=== PATIENT | female | born 1990 | race Caucasian/White ===

== ENCOUNTER 2017-02-16 19:11 | Emergency (ER) | payer OTHER ==
[~2017-02-16] VITALS: Ht 165.1 cm; Wt 56.7 kg
[2017-02-16 19:13] VITALS: BP 129/91
[2017-02-16] MEDS ORDERED: TRINTAB PO (19:34)
[2017-02-16] MEDS ORDERED: ACETAMINOPHEN TAB 650MG DOSE (2X325MG) PO ONE (20:00)
== END 2017-02-16 20:26 | disposition home or self-care (01) ==
LOC: M ED 20:21
DX: S86.812A Strain of other muscle(s) and tendon(s) at lower leg level, left leg, initial encounter (principal); X50.9XXA Other and unspecified overexertion or strenuous movements or postures, initial encounter; Y92.9 Unspecified place or not applicable; Y93.72 Activity, wrestling; Y99.9 Unspecified external cause status; Z79.01 Long term (current) use of anticoagulants

== ENCOUNTER 2017-08-22 11:05 | Emergency (ER) | payer OTHER ==
[~2017-08-22] VITALS: Ht 165.1 cm; Wt 61.4 kg
[~2017-08-22 11:05] MED LIST: TRINTAB3 PO
[2017-08-22] MEDS ORDERED: IBUP-1022 PO (11:14)
[2017-08-22] MEDS ORDERED: IBUPROFEN 800 MG TAB PO ONE (12:15)
[2017-08-22 12:28] LABS: BASO # 0.1 10^3/uL (0.0-0.2); BASO % 0.8 % (0.0-1.0); EOS # 0.1 10^3/uL (0.0-0.50); EOS % 1.8 % (0.0-3.0); IMMATURE GRANULOCYTE % 0.4 % (0-0); LYMPH # 2.2 10^3/uL (1.5-6.5); LYMPH % 30.8 % (24.0-44.0); MEAN CORPUSCULAR HGB CONC 33.9 g/dl (32.0-36.5); MEAN CORPUSCULAR VOLUME 91.5 fl (80.0-96.0); MONO # 0.5 10^3/uL (0.0-0.8); MONO % 7.5 % (0.0-5.0); NEUTROPHILS # 4.2 10^3/uL (1.8-7.7); NEUTROPHILS % 58.7 % (36.0-66.0); PLATELET COUNT, AUTOMATED 265 10^3/uL (150-450); RED CELL DISTRIBUTION WIDTH 12.2 % (11.5-14.5); WHITE BLOOD COUNT 7.2 10^3/uL (4.0-10.0)
[2017-08-22 13:33] VITALS: BP 109/65
== END 2017-08-22 13:34 | disposition home or self-care (01) ==
LOC: M ED 11:05
DX: N92.0 Excessive and frequent menstruation with regular cycle (principal); F17.210 Nicotine dependence, cigarettes, uncomplicated; Z79.3 Long term (current) use of hormonal contraceptives

== ENCOUNTER → 2020-11-02 | Outpatient (REF) | payer OTHER ==
[~2020-11-02] MED LIST changes: +IBUP-1022 PO; +TRINTAB PO; -TRINTAB3 PO
[2020-11-02 19:43] LABS: HEMATOCRIT 37.4 % (36.0-47.0); HEMOGLOBIN 12.1 g/dl (12.0-15.5); MEAN CORPUSCULAR HEMOGLOBIN 29.7 pg (27.0-33.0); MEAN CORPUSCULAR HGB CONC 32.4 g/dl (32.0-36.5); MEAN CORPUSCULAR VOLUME 91.7 fl (80.0-96.0); PLATELET COUNT, AUTOMATED 245 10^3/uL (150-450); RED BLOOD COUNT 4.08 10^6/uL (4.00-5.40); WHITE BLOOD COUNT 6.7 10^3/uL (4.0-10.0)
[2020-11-02 21:03] LABS: HEPATITIS C VIRUS ABY INDEX < 0.0 INDEX (<0.8); HIV 1&2 SCREEN CENTAUR NEGATIVE (NEGATIVE)
== END ==
LOC: M PLALAB 15:35
PROVIDERS: ATTEND Advanced Practice Midwife
DX: Z34.91 Encounter for supervision of normal pregnancy, unspecified, first trimester (principal); Z3A.00 Weeks of gestation of pregnancy not specified

== ENCOUNTER → 2020-11-29 | Outpatient (CLI) | payer OTHER | LOC: M WHC 17:27 | PROVIDERS: ATTEND Obstetrics & Gynecology | DX: Z34.92 Encounter for supervision of normal pregnancy, unspecified, second trimester (principal); Z3A.14 14 weeks gestation of pregnancy; Z53.9 Procedure and treatment not carried out, unspecified reason ==

== ENCOUNTER → 2020-12-28 | Outpatient (CLI) | payer OTHER ==
--- NOTE | 2020-12-28 09:50 | REP ---
INDICATION: ANATOMY COMPARISON: None. TECHNIQUE: Transabdominal obstetrical ultrasound with color Doppler evaluation. FINDINGS: Examination demonstrates a single live intrauterine in cephalic presentation. motion is identified by technologist. Placenta is noted posterior/fundal and grade 0 without evidence for placenta previa or abruption. Amniotic fluid volume is normal. Cervix measures 3.1 cm in length and appears closed.. Gestational age by LMP 18 weeks 0 days with GUSTAVO 05/31/2021. Gestational age by current measurements 17 weeks 4 days with GUSTAVO 06/03/2021. FHR equals 149 beats per minute. BPD: 3.8 cm at 17 weeks 4 days HC: 14.2 cm at 17 weeks 4 days AC: 12.2 cm at 17 weeks 6 days FL: 2.4 cm at 17 weeks 1 day HL: 2.4 cm at 17 weeks 4 days HC/AC: 1.17 Estimated weight 198 grams (20thpercentile). Anatomical assessment demonstrates normal structures including cranium, facial features, lungs, four-chamber heart/ventricular outflow tracts, diaphragm, stomach, cord insertion/three-vessel cord, kidneys/bladder, and extremities. Right choroid plexus cyst identified along with incomplete evaluation of the posterior fossa and spine due to positioning. IMPRESSION: Single live intrauterine in cephalic presentation demonstrating appropriate estimated weight. Anatomical limitations as noted above may warrant re-evaluation and follow-up. <Electronically signed by Raffi Liu > 12/28/20 0927
== END ==
LOC: M WHC 08:29
PROVIDERS: ATTEND Obstetrics & Gynecology
DX: Z34.82 Encounter for supervision of other normal pregnancy, second trimester (principal); Z3A.14 14 weeks gestation of pregnancy
CPT/HCPCS: 36415; 76811; G0463

== ENCOUNTER → 2020-12-28 | Outpatient (CLI) | payer OTHER | LOC: M PLALAB 15:40 | PROVIDERS: ATTEND Obstetrics & Gynecology | DX: Z34.82 Encounter for supervision of other normal pregnancy, second trimester (principal) ==

== ENCOUNTER → 2021-03-26 | Outpatient (CLI) | payer OTHER ==
[~2021-03-26] MED LIST changes: +DIBU28OI2 TOP; +DOCU100C16 PO; +IBUP80TA PO; +PROC1CRE5 TOP
== END ==
LOC: M WHC 10:20
PROVIDERS: ATTEND Obstetrics & Gynecology
DX: O26.849 Uterine size-date discrepancy, unspecified trimester (principal)

== ENCOUNTER → 2021-04-06 | Outpatient (CLI) | payer OTHER ==
--- NOTE | 2021-04-06 16:20 | REP ---
INDICATION: UTERINE SIZE DATE DISCREPANCY,SIZE. COMPARISON: None. TECHNIQUE: Transabdominal FINDINGS: Multiple ultrasonographic images of the gravid uterus shows a single living intrauterine gestation in the cephalic presentation. Doppler interrogation of the heart shows a heart rate of 138 beats per minute. The placenta is posterior fundal and not low-lying. The cervix measures 3.6 cm in length and is closed. The subjective amniotic fluid volume is within normal limits. The calculated amniotic fluid index is 15.4 with an expected range 8.6-24.2. BPD: 8.2 cm 32 weeks 5 days HC: 30.3 cm 33 weeks 5 days AC: 20.1 cm 32 weeks 1 day FL: 6.2 cm 32 weeks 2 days The estimated weight is 1961 g which is at the 47th percentile for 32 week 1 day gestational age. Doppler interrogation of the umbilical artery shows an A\B ratio of 0.7 3.89. This is slightly above the upper limit of normal which is 3.86. IMPRESSION: Single living intrauterine gestation as described above with an estimated gestational age of 32 weeks 4 days via composite criteria and an estimated date of delivery of 05/28/2021 by today's exam. <Electronically signed by Jesus Zayas > 04/06/21 1869
== END ==
LOC: M WHC 13:27
PROVIDERS: ATTEND Obstetrics & Gynecology
DX: O26.849 Uterine size-date discrepancy, unspecified trimester (principal); Z3A.32 32 weeks gestation of pregnancy

== ENCOUNTER 2021-05-07 10:32 | Inpatient (IN) | payer OTHER ==
[~2021-05-07] VITALS: Ht 165.1 cm; Wt 67.3 kg
[2021-05-07] MEDS ORDERED: PNV-TAB2 PO (10:45)
[2021-05-07] MEDS ORDERED: HOME MED LIST COMPLETE! XX SCH (10:45)
[2021-05-07 10:50] VITALS: BP 119/73
[2021-05-07] MEDS ORDERED: OXYTOCIN 30 UNITS IN 0.9% NaCl 500ML IV BAG (J2590) As Ordered ONE (11:35)
[2021-05-07] MEDS ORDERED: PENICILLIN G POTASSIUM IV 5 MU in D5W MINI-BAG PLUS 100 ML IV SCH (11:40)
[2021-05-07] MEDS ORDERED: PENICILLIN G POTASSIUM 5 MU VIAL As Ordered ONE (11:41)
[2021-05-07] MEDS ORDERED: PENICILLIN G POTASSIUM IV 5 MU in D5W MINI-BAG PLUS 100 ML IV ONE (11:45)
[2021-05-07] MEDS ORDERED: OXYTOCIN DRIP 30 UNITS in IV 1 EA IV PRN (11:50)
[2021-05-07] MEDS ORDERED: METHYLERGONOVINE MALEATE 0.2 MG/ML VIAL (J2210) IM PRN (11:50)
[2021-05-07] MEDS ORDERED: CARBOPROST TROMETHAMINE 250 MCG/ML AMP IM PRN (11:50)
[2021-05-07] MEDS ORDERED: LIDOCAINE 1% MDV 20ML VIAL INFIL PRN (11:50)
[2021-05-07 12:08] LABS: HEMATOCRIT 33.8 % (36.0-47.0); HEMOGLOBIN 11.3 g/dl (12.0-15.5); MEAN CORPUSCULAR HEMOGLOBIN 27.8 pg (27.0-33.0); MEAN CORPUSCULAR HGB CONC 33.4 g/dl (32.0-36.5); PLATELET COUNT, AUTOMATED 204 10^3/uL (150-450); RED BLOOD COUNT 4.07 10^6/uL (4.00-5.40); WHITE BLOOD COUNT 13.7 10^3/uL (4.0-10.0)
--- NOTE | 2021-05-07 12:24 | HPEPDOC ---
Obstetrical History & Physical General Date of Admission May 07, 2021 at 11:22 Primary Care Physician: GIOVANNA JAMISON CNM History of Present Illness Jordyn is a 31-year-old female who is a who is 36.4 weeks gestation with an GUSTAVO of 05/31/21 based on her LMP and consistent with her first trimester ultrasound. She initiated care with [facility] in her first trimester. Her has been complicated by a history of a shoulder dystocia, which she has been counseled on throughout her . She presents with complaints of contractions that started at 0200 and progressively got worse. She reports active movement. Denies vaginal bleeding or leaking of fluid. Chief Complaint: Other (active labor) Information Provided By: Patient Age: 31 : 2 Term: 1 Pre-term: 0 Abortions: 0 Livin Care Care: Good Care Dating Final EDC: May 31, 2021 Final EDC by: LMP EGA at Admission: 36.4 Antepartum Course Diagnos(e)s History of shoulder dystocia Height (inches): 65 Pre- weight (lbs.): 124 Admission Weight (lbs.): 150 Change in Weight (lbs.): 26 Past Medical History Past Obstetrical History : Past Obstetrical History: Primgravida Date of Delivery: Oct 08, 2019 Gestation: 40 Type of Delivery: Spontaneous Vaginal Del. Sex of Infant: Male (10/08/2017) Complications: Yes (8 lbs 8 oz) MENTAL HEALTH PROFESSIONAL History: No pertinent history Past Medical History Surgical History: Denies/None Family History Significant Family History: Other (lupus) Social History Marital Status: Family situation: Spouse/partner home Psychosocial History: No pertinent psych hx * Smoker: non-smoker Alcohol: Denies Drugs: denies Abuse Violence Screening Have you been hit/kicked/slapp: No Have you been sexually assault: No Imunizations Tdap status: current Allergies Coded Allergies: No Known Allergies (Unverified , 02/16/17) Medications Miscellaneous Medications ,Calc.40/Iron/Folate 1 (Pnv-Select Tablet) 1 Each Tablet, 1 TAB PO Physical Examination Physical Examination GENERAL: Alert and oriented times three. ABDOMEN: Gravid and non-tender to touch. FETUS: Is vertex (VTX) by sterile vaginal examination (SVE), fetus is vertex (VTX) by Dill[place] and by bedside sono. LUNGS: Clear to auscultation (CTA). EXTREMITIES: No edema. No clonus. Deep tendon reflexes (DTRs) + 2. Vital Signs/I&O Vital Signs Date Time Temp Pulse Resp B/P (MAP) Pulse Ox O2 Delivery O2 Flow Rate FiO2 05/07/21 10:50 98.1 81 20 119/73 (88) Laboratory Data 24H LABS Laboratory Tests 2 05/07/21 11:27: Serology Scanned Report Hepatitis B Testing Microbiology Microbiology 05/07/21 Group B Streptococcus Screen ([place]), Received Pending Pertinent Laboratoy Data Blood Type: A- RBC Antibody Screen: Negative HIV: Negative Hepatitis B: Negative Hepatitis C: Negative Rapid Plasma Reagin: Nonreactive Rubella: Immune Chlamydia/Gonorrhea: Negative Group B Streptococcus: Unknown Glucose Tolerance Test: 67 Vaginal Examination Dilation: 8 cm (8-9 cm) Effacement: 100% Station: -1 Presentation: Cephalic presentation Position: Four quadrants Assessment Heart Rate (FHR): 120 Variability: Moderate Accelerations: Positive Decelerations: Early, Variable Tocometer Contractions: Yes Frequency: regular, every 2-5 min. Multi-drug resistant Organism: No history of MDRO Assessment/Plan Assessment IUP at 36.4 weeks gestation active labor GBS unknown Plan Admit to L&D. OOB ad jeanne. Diet: clears. Group B Streptococcus (GBS) unknown. PCN G ordered. Labs and intravenous (IV) per unit protocol. Counseled on history of Shoulder dystocia and reviewed decreased risk due to gestation but continues to be a potential risk. Patient desires to proceed with vaginal delivery. Anticipate vaginal delivery. C-S as appropriate. GIOVANNA JAMISON CNM May 07, 2021 12:24
[2021-05-07 13:38] VITALS: BP 120/61
[2021-05-07 13:56] VITALS: BP 117/58
[2021-05-07 14:08] VITALS: BP 112/59
[2021-05-07] MEDS ORDERED: DOCUSATE SODIUM 100MG CAPSULE PO PRN (14:15)
[2021-05-07] MEDS ORDERED: IBUPROFEN 600MG TAB PO PRN (14:15)
[2021-05-07] MEDS ORDERED: RHOGAM 300 MCG (1500 IU) INJ (J2790) IM SCH (14:15)
[2021-05-07] MEDS ORDERED: MEASLES,MUMPS,RUBELLA VACCINE INJ (MMR-II) (90707) SC SCH (14:15)
[2021-05-07] MEDS ORDERED: DIBUCAINE 1% OINTMENT 30GM TOP PRN (14:15)
[2021-05-07] MEDS ORDERED: METHYLERGONOVINE MALEATE 0.2 MG TAB PO PRN (14:15)
[2021-05-07] MEDS ORDERED: IBUPROFEN 800 MG TAB PO PRN (14:15)
[2021-05-07] MEDS ORDERED: ANUSOL HC CREAM 30GM TOP PRN (14:15)
[2021-05-07] MEDS ORDERED: ACETAMINOPHEN TAB 650MG DOSE (2X325MG) PO PRN (14:15)
--- NOTE | 2021-05-07 14:32 | DNPDOC ---
[facility] Delivery Note Delivery Note DATE OF DELIVERY: 05/07/21 at 1328 PREDELIVERY DIAGNOSIS: 36-4/7 weeks' gestation and active labor. POST DELIVERY DIAGNOSIS: Delivered. PROCEDURE: Spontaneous vaginal delivery. FINAL ASSEMBLY WORKER: Giovanna Higginbotham CNM, AYAZ ANESTHESIA: none. ESTIMATED BLOOD LOSS: 450 mL. FINDINGS: 6 pounds 1 ounces; 2760 grams; female , Score 9/9, labor and delivery. DELIVERY SUMMARY: Jordyn is a 31-year-old female who is now a at 36.4 weeks gestation that presented to L&D in active labor. She progressed to fully dilated at 1305 and pushed to a living female while in hands and knees. The head delivered KING with restitution to ROT. The anterior shoulder delivered with ease and the corpus delivered. The baby was passed through the patients legs to be held by her mother. The baby was active and crying. The cord was clamped x2 after pulsation ceased and cut but the FOB. A 3-vessel cord was noted. The placenta delivered spontaneously and intact at 1335. Uterine hemostasis was achieved via rapid infusion of IV Pitocin and fundal massage. The perineum, cervix, and vagina were inspected and found to be intact. Mom plans on and they are naming her Leonid. All counts of instruments and sponges are correct. Both mom and baby are in stable condition. GIOVANNA HIGGINBOTHAM CNM May 07, 2021 14:32
[2021-05-07 14:35] VITALS: BP 104/55
[2021-05-07 14:39] VITALS: BP 104/62
[2021-05-07] MEDS: ACETAMINOPHEN 500 MG TAB PO PRN (18:40)
[2021-05-08 06:00] VITALS: BP 99/54
[2021-05-08] MEDS: PRENATAL VITAMINS CHEWABLE TABLET PO SCH (10:08)
[2021-05-08 18:13] VITALS: BP 104/64
[2021-05-08] MEDS: ACETAMINOPHEN 500 MG TAB PO PRN (20:17)
[2021-05-09 06:01] VITALS: BP 118/72
--- NOTE | 2021-05-09 06:16 | IPNPDOC ---
Progress Note Date of Service: May 09, 2021 Progress Note SUBJECT: Status post . She has been ambulating, voiding spontaneously without issue and tolerating regular diet. Lochia decreasing/minimal. Pain is well-controlled. Denies headache, visual changes, right upper quadrant pain, shortness breath or chest pain. OBJECTIVE: VITAL SIGNS: Within normal limits, afebrile. Alert and oriented times three. Abdomen: Fundus firm at U-2. Soft, NTTP. ASSESSMENT: Status post uncomplicated spontaneous vaginal delivery. Vitals within normal limits, afebrile, hemodynamically stable with no evidence of infection. PLAN: Discharge to home today. Tylenol and Motrin for pain. Routine instructions/precautions reviewed. Routine PP visit in 6 weeks in clinic. VS, I&O, 24H, Fishbone Vital Signs/I&O Vital Signs Date Time Temp Pulse Resp B/P (MAP) Pulse Ox O2 Delivery O2 Flow Rate FiO2 05/09/21 06:01 98.0 80 18 118/72 (87) 98 Room Air Laboratory Data Microbiology Microbiology 05/07/21 Group B Streptococcus Screen ([place]), Received Pending JM GONGORA DO May 09, 2021 06:15
[2021-05-09] MEDS: PRENATAL VITAMINS CHEWABLE TABLET PO SCH (10:28)
== END 2021-05-09 15:33 | disposition home or self-care (01) | DRG 807 ==
LOC: M LDO 10:32 → M LDI 11:22 → M OBS 16:29
PROVIDERS: ADMIT Advanced Practice Midwife; ATTEND Advanced Practice Midwife
PROC: 10E0XZZ Delivery of Products of Conception, External Approach (ICD-10-PCS; principal; 2021-05-07)
DX: O60.14X0 Preterm labor third trimester with preterm delivery third trimester, not applicable or unspecified (principal); Z37.0 Single live birth; Z3A.36 36 weeks gestation of pregnancy

== ENCOUNTER → 2023-03-17 | Outpatient (REF) | payer OTHER ==
[~2023-03-17] MED LIST changes: +PNV-TAB2 PO
== END ==
LOC: M SFHCWAGY 18:07
PROVIDERS: ATTEND Nurse Practitioner Family
DX: Z12.4 Encounter for screening for malignant neoplasm of cervix (principal)